=== PATIENT | male | born 1955 | race Caucasian/White ===

== ENCOUNTER 2022-09-23 15:56 | Emergency (ER) | payer BC ==
[2022-09-23] MEDS ORDERED: Sodium Chloride 0.9% 10 ML Syringe FLUSH PRN (15:58)
[2022-09-23] MEDS ORDERED: Morphine 2 MG/ML SYRINGE IVPUSH ONE (15:58)
[2022-09-23] MEDS ORDERED: Iopamidol 612 MG/ML 100 ML Bottle IVPUSH ONE (16:02)
[2022-09-23] MEDS ORDERED: Sodium Chloride 0.9% 10 ML Syringe FLUSH ONE (16:02)
[2022-09-23 16:25] LABS: ESTIMATED GFR 82 mL/min (>60)
[2022-09-23] MEDS ORDERED: Sodium Chloride 0.9% 1,000 ML IV SCH (16:45)
[2022-09-23] MEDS ORDERED: Sodium Chloride 0.9% 1,000 ML ONE (16:51)
[2022-09-23 20:22] VITALS: BP 138/74; PULSE 20
== END 2022-09-23 20:08 ==
LOC: JD.ED 15:56
DX: S22.43XA Multiple fractures of ribs, bilateral, initial encounter for closed fracture (principal); S22.22XA Fracture of body of sternum, initial encounter for closed fracture; S27.322A Contusion of lung, bilateral, initial encounter; S36.116A Major laceration of liver, initial encounter; Z79.899 Other long term (current) drug therapy; V49.40XA Driver injured in collision with unspecified motor vehicles in traffic accident, initial encounter; Y92.410 Unspecified street and highway as the place of occurrence of the external cause
CPT/HCPCS: 36415; 71045; 71260; 74177; 80053; 82150; 83605; 85025; 85610; 85730; 86850; 86900; 86901; 93005; 96361; 96374; 99285; J2270; J3490; J7030; Q9967; 93010